=== PATIENT | female | born 1955 | race Caucasian/White ===

== ENCOUNTER → 2016-08-06 | Outpatient (CLI) | payer OTHER ==
[~2016-08-06] MED LIST: /ONDA4TA OR; /RANI15TA OR; AGGRCAP PO; AMIT24CA PO; BACL10TA2 PO; BISA5TAB64 PO; CETI10TA3 PO; CILO100T PO; COLA50CA3 PO; FLUR30CA PO; FURO20TA2 PO; KLON1TAB PO; MUCI600T34 PO; OMEP40CA2 PO; PERC7.5T PO; PERC7.5T3 PO; POTA75TA PO; SIMV40TA2 PO; diltiazem OR; metoprolol OR
--- NOTE | 2016-08-06 11:12 | REP ---
Gastric emptying nuclear scintigraphy: History: Bloating. There is a biliary tract. Nausea vomiting. Technique: 1.1 mCi of technetium-99m sulfur colloid was ingested in two scrambled eggs and 6 ounces of water and sequential anterior and posterior images are acquired for an 89-minute imaging observation period. Regions of interest are drawn around the stomach to plot gastric emptying. Scintigraphic findings: Expected T1/2 is 90 minutes. 59 % emptying is observed in this patient during the 89-minute imaging observation period, for a calculated T1/2 in this patient of 78 minutes. Impression: Normal gastric emptying. Signed by Luciano Saha MD 08/06/2016 11:04 A
== END ==
LOC: M RAD 08:25
PROVIDERS: ATTEND Internal Medicine Gastroenterology
DX: K83.9 Disease of biliary tract, unspecified (principal); R14.0 Abdominal distension (gaseous)

== ENCOUNTER → 2018-11-28 | Outpatient (REF) ==
[~2018-11-28] MED LIST changes: -/ONDA4TA OR; -/RANI15TA OR; +AGGR1CAP PO; -AGGRCAP PO; +ONDA-1 OR; +PERC7.5T11 PO; -PERC7.5T3 PO; +RANI1TAB17 OR
== END ==
LOC: M LAB LCGH 14:53
PROVIDERS: ATTEND Surgery
DX: D12.6 Benign neoplasm of colon, unspecified (principal)

== ENCOUNTER → 2019-02-24 | Outpatient (CLI) | payer OTHER ==
[~2019-02-24] MED LIST changes: +ISOVUE-370 76% 100ML VIAL (Q9967) As Ordered ONE
--- NOTE | 2019-02-25 06:17 | REP ---
Clinical: Abdominal aortic aneurysm. Technique: Axial contrast enhanced images using angiographic technique from the lung bases to the pubic symphysis with coronal and sagittal re-formations and 3-D MIP images. 100 ml Isovue 370 intravenous contrast material administered without complication. Comparison: 08/07/2013. Findings: The patient is noted to be status post aorto-iliac stent placement for aneurysm. Abdominal aorta measures approximately 2.2 cm maximal diameter and demonstrates appropriate enhancement without mural thrombus, stenosis, aneurysmal enlargement or periaortic inflammatory stranding / fluid. Appropriate enhancement of the celiac axis, superior mesenteric artery, bilateral renal arteries and bilateral common iliac arteries noted. The origin of the inferior mesenteric artery is not identified. Distal runoff to the visualized bilateral internal and external iliac arteries and bilateral common femoral arteries/proximal superficial femoral arteries appear symmetric and normal. Liver, spleen, pancreas, and bilateral adrenal glands appear normal. The kidneys demonstrate age-related cortical thinning as well as somewhat geographic areas of low density extending through to the cortex suggesting areas of prior segmental infarction. No perinephric stranding or hydronephrosis noted. The enteric system is without obstruction or acute inflammatory process. Pelvis demonstrates normal bladder and evidence for prior hysterectomy. No ascites. No free air. Small fat containing periumbilical hernia identified. Musculoskeletal structures demonstrate age-related osteopenia and degenerative change without focal aggressive abnormality. Lung bases are clear. Impression: 1. Patent stable appearance to the aorta and branch vessels including stable relatively normal appearance to the aorto-iliac stent without intraluminal thrombus or narrowing and without evidence for periaortic inflammatory stranding or fluid. Branch vessels demonstrate appropriate enhancement. 2. Age-related cortical thinning to the kidneys focal areas of low density extending to the cortex suggesting areas of prior segmental infarction. No acute renal findings appreciated. 3. Small fat containing periumbilical hernia. Electronically Signed by Irineo Tate MD 02/25/2019 06:08 A
== END ==
LOC: M RAD 15:28
PROVIDERS: ATTEND Surgery Vascular Surgery
DX: I71.4 Abdominal aortic aneurysm, without rupture (principal); K46.9 Unspecified abdominal hernia without obstruction or gangrene
CPT/HCPCS: 74174; Q9967